=== PATIENT | female | born 1995 | race Hispanic/Latino ===

== ENCOUNTER 2022-08-01 00:05 | Inpatient (IN) | payer OTHER ==
[~2022-08-01] VITALS: Ht 152.4 cm; Wt 64.9 kg
[2022-08-01 00:53] VITALS: BP 124/79
--- NOTE | 2022-08-01 13:32 | PR ---
[facility] [address] [place] [place] [address] Signed Progress Notes IP Datetime Report Generated by CPN: 08/01/2022 13:32 PROGRESS NOTES: [id number] Impression: Normal Progression of Labor; Reassuring Heart Rate Procedures: Intrauterine Pressure Catheter Plan: Continue Present Management Informed Consent Obtain: Vaginal Delivery VITAL SIGNS: [id number] Vital Signs: Reviewed; Within Normal Limits EXAM: [id number] Dilatation: 3.5 Effacement: 85 Station: -2 Contractions: q 1 min MEMBRANES: [id number] Comments: Pt seen and examined. Doing well. Comfortable w/ contractions after epidural. Cx now 3.5cm. IUPC placed w/out difficulty. Reviewed anticipated course of labor and delivery FETUS A: [id number] FHR Baseline: 140 Variability: Moderate 6-25bpm Accelerations: None Decelerations: None FHR Category: Category I Presentation: Vertex Comments on Fetus A: No evidence of metabolic acidosis FETUS B: [id number] Signing Physician: Armando Mendez DO Copies: ~ *Electronically Signed* 08/01/22 1062 ARMANDO MENDEZ (BRYAN) DO PATIENT NAME: TOMLINSON ENCARNACION,YOSHIRA J PROGRESS NOTE DATE OF : 97 PHYSICIAN: ARMANDO MENDEZ) DO RPT #: [id number] REPORT IS CONFIDENTIAL AND NOT TO BE RELEASED WITHOUT AUTHORIZATION
--- NOTE | 2022-08-01 17:29 | PR ---
[facility] [address] [place], [place] [address] Signed Progress Notes IP Datetime Report Generated by RONEY: 08/01/2022 17:28 PROGRESS NOTES: [id number] Impression: Normal Progression of Labor; Reassuring Heart Rate Other Impressions: tachycardia Procedures: Sterile Vag Exam Plan: Continue Present Management Informed Consent Obtain: Vaginal Delivery VITAL SIGNS: [id number] Vital Signs: Reviewed; Within Normal Limits EXAM: [id number] Dilatation: 7.0 Effacement: 90 Station: -1 Contractions: q 1 min MEMBRANES: [id number] Comments: Pt seen and examined. tachycardia noted. Pt reports that she feels well but does complain of some mild chest heaviness. No chest pain. No maternal tachycardia but borderline maternal temp. Moderate variability noted. Will give dose of tylenol 1g PO now and monitor closely. Discussed ddx of tachycardia and will consider abx therapy if indicated. All questions answered. FETUS A: [id number] FHR Baseline: 140 Variability: Moderate 6-25bpm Accelerations: None Decelerations: None FHR Category: Category I Presentation: Vertex Comments on Fetus A: No evidence of metabolic acidosis FETUS B: [id number] Signing Physician: Armando Mendez DO Copies: ~ *Electronically Signed* 08/01/22 3258 ARMANDO MENDEZ (BRYAN) DO PATIENT NAME: DAVI ENCARNACIONVERENICE PROGRESS NOTE DATE OF : 97 PHYSICIAN: ARMANDO MENDEZ (JD) DO RPT #: [id number] REPORT IS CONFIDENTIAL AND NOT TO BE RELEASED WITHOUT AUTHORIZATION
--- NOTE | 2022-08-01 18:32 | PR ---
[facility] [address] [place], [place] [address] Signed Progress Notes IP Datetime Report Generated by CPN: 08/01/2022 18:32 PROGRESS NOTES: [id number] Impression: Normal Progression of Labor Other Impressions: tachycardia Procedures: Sterile Vag Exam Plan: Continue Present Management Other Plans: cbc; consider abx Informed Consent Obtain: Risks, Benefits and Alternatives Discussed VITAL SIGNS: [id number] Vital Signs: Reviewed; Within Normal Limits EXAM: [id number] Dilatation: 8.0 Effacement: 90 Station: -1 Contractions: q 1 min MEMBRANES: [id number] Comments: Pt seen and evaluated. FHT had improved but over the past few minutes tachycardia increased, minimal variability, and suble late decelerations. Pt now 8cm / 90 / -1. Discussed FHT and d/dx. Pt recently received tylenol and is afebrile and non-tachycardic. Pt denies subjective fever. Will continue intrauterine rescussitation FETUS A: [id number] FHR Baseline: 140 Variability: Moderate 6-25bpm Accelerations: None Decelerations: None FHR Category: Category I Presentation: Vertex Comments on Fetus A: No evidence of metabolic acidosis FETUS B: [id number] Signing Physician: Armando Mendez DO Copies: ~ *Electronically Signed* 08/01/221831 ARMANDO MENDEZ (BRYAN) DO PATIENT NAME: VERENICE ANGUIANO PROGRESS NOTE DATE OF : 97 PHYSICIAN: ARMANDO MENDEZ) DO RPT #: [id number] REPORT IS CONFIDENTIAL AND NOT TO BE RELEASED WITHOUT AUTHORIZATION
--- NOTE | 2022-08-01 19:23 | PR ---
[facility] [address] [place], [place] [address] Signed Progress Notes IP Datetime Report Generated by CPN: 08/01/2022 19:23 PROGRESS NOTES: [id number] Impression: Normal Progression of Labor; Reassuring Heart Rate Other Impressions: tachycardia Procedures: Sterile Vag Exam Plan: Continue Present Management; Anticipate Vaginal Delivery Other Plans: cbc; consider abx Informed Consent Obtain: Risks, Benefits and Alternatives Discussed VITAL SIGNS: [id number] Vital Signs: Reviewed; Within Normal Limits EXAM: [id number] Dilatation: 9.0 Effacement: 90 Station: -1 Contractions: q 1 min MEMBRANES: [id number] Comments: Pt seen and examined. Doing well. Afebrile and pt reports she feels well. Comfortable w/ contractions. Reviewed CBC showing mild leukocytosis. FETUS A: [id number] FHR Baseline: 140 Variability: Moderate 6-25bpm Accelerations: None Decelerations: None FHR Category: Category I Presentation: Vertex Comments on Fetus A: No evidence of metabolic acidosis FETUS B: [id number] Signing Physician: Armando Mendez DO Copies: ~ *Electronically Signed* 08/01/221922 ARMANDO MENDEZ (BRYAN) DO PATIENT NAME: DAVI ENCARNACIONVERENICE PROGRESS NOTE DATE OF : 97 PHYSICIAN: ARMANDO MENDEZ) DO RPT #: [id number] REPORT IS CONFIDENTIAL AND NOT TO BE RELEASED WITHOUT AUTHORIZATION
--- NOTE | 2022-08-01 21:16 | PR ---
[facility] [address] [place], [place] [address] Signed Progress Notes IP Datetime Report Generated by CPN: 08/01/2022 21:16 PROGRESS NOTES: [id number] Impression: Normal Progression of Labor; Reassuring Heart Rate Other Impressions: tachycardia Procedures: Sterile Vag Exam Plan: Continue Present Management; Anticipate Vaginal Delivery Other Plans: cbc; consider abx Informed Consent Obtain: Risks, Benefits and Alternatives Discussed VITAL SIGNS: [id number] Vital Signs: Reviewed; Within Normal Limits EXAM: [id number] Dilatation: 9.0 Effacement: 90 Station: 0 Contractions: q 1 min MEMBRANES: [id number] Comments: Pt seen and examined. Doing well. Comfortable w/ contractions. Cat 1 tracing. Afebrile. Reviewed inadequate contractions, EFW, and adequate pelvis. Will consider pitocin augmentation FETUS A: [id number] FHR Baseline: 140 Variability: Moderate 6-25bpm Accelerations: None Decelerations: None FHR Category: Category I Presentation: Vertex Comments on Fetus A: No evidence of metabolic acidosis FETUS B: [id number] Signing Physician: Armando Mendez DO Copies: ~ *Electronically Signed* 08/01/222115 ARMANDO MENDEZ (BRYAN) DO PATIENT NAME: DAVI ENCARNACIONVERENICE [place] PROGRESS NOTE DATE OF : 97 PHYSICIAN: ARMANDO MENDEZ (JD) DO RPT #: [id number] REPORT IS CONFIDENTIAL AND NOT TO BE RELEASED WITHOUT AUTHORIZATION
--- NOTE | 2022-08-01 23:22 | PR ---
[facility] [address] [place], [place] [address] Signed Progress Notes IP Datetime Report Generated by CPN: 08/01/2022 23:22 PROGRESS NOTES: [id number] Impression: Normal Progression of Labor; Reassuring Heart Rate Other Impressions: tachycardia Procedures: Sterile Vag Exam Plan: Continue Present Management; Anticipate Vaginal Delivery Other Plans: cbc; consider abx Informed Consent Obtain: Vaginal Delivery VITAL SIGNS: [id number] Vital Signs: Reviewed; Within Normal Limits EXAM: [id number] Dilatation: 9.5 Effacement: 100 Station: 0 Contractions: q 1 min MEMBRANES: [id number] Comments: Pt seen and examined. Doing well. Continued cervical progress w/ inadequate contractions on pitocin. Will continue pitocin per protocol. Reviewed adequate pelvis, EFW, and position. All questions answered. No fevers or s/sx intraamniotic infection FETUS A: [id number] FHR Baseline: 140 Variability: Moderate 6-25bpm Accelerations: None Decelerations: None FHR Category: Category I Presentation: Vertex Comments on Fetus A: No evidence of metabolic acidosis FETUS B: [id number] Signing Physician: Armando Mendez DO Copies: ~ *Electronically Signed* 08/01/22 1366 ARMANDO MENDEZ (BRYAN) DO PATIENT NAME: VERENICE ANGUIANO PROGRESS NOTE DATE OF : 97 PHYSICIAN: ARMANDO MENDEZ (JD) DO RPT #: [id number] REPORT IS CONFIDENTIAL AND NOT TO BE RELEASED WITHOUT AUTHORIZATION
--- NOTE | 2022-08-02 00:50 | PR ---
[facility] [address] [facility] [place], [place] [address] Signed Progress Notes IP Datetime Report Generated by CPN: 08/02/2022 00:50 PROGRESS NOTES: [id number] Impression: Normal Progression of Labor; Reassuring Heart Rate Other Impressions: tachycardia Procedures: Sterile Vag Exam Plan: Continue Present Management; Anticipate Vaginal Delivery Other Plans: cbc; consider abx Informed Consent Obtain: Vaginal Delivery VITAL SIGNS: [id number] Vital Signs: Reviewed; Within Normal Limits EXAM: [id number] Dilatation: 9.5 Effacement: 100 Station: 1 Contractions: q 1 min MEMBRANES: [id number] Comments: Pt seen and examined. Pushing well w/ contractions. Will continue pushing efforts. Anticipate soon FETUS A: [id number] FHR Baseline: 140 Variability: Moderate 6-25bpm Accelerations: None Decelerations: None FHR Category: Category I Presentation: Vertex Comments on Fetus A: No evidence of metabolic acidosis FETUS B: [id number] Signing Physician: Armando Mendez DO Copies: ~ *Electronically Signed* 08/02/22 0050 ARMANDO MENDEZ (BRYAN) DO PATIENT NAME: VERENICE ANGUIANO PROGRESS NOTE DATE OF : 97 PHYSICIAN: ARMANDO MENDEZ) DO RPT #: [id number] REPORT IS CONFIDENTIAL AND NOT TO BE RELEASED WITHOUT AUTHORIZATION
--- NOTE | 2022-08-02 01:57 | PR ---
[facility] [address] [place], [place] [address] Signed Progress Notes IP Datetime Report Generated by RONEY: 08/02/2022 01:57 PROGRESS NOTES: [id number] Impression: Arrest of Dilatation/Descent Other Impressions: tachycardia Procedures: Sterile Vag Exam Plan: Continue Present Management Other Plans: Consider C/S if continued failure to descend Informed Consent Obtain: Vaginal Delivery; Section Delivery; Risks, Benefits and Alternatives Discussed VITAL SIGNS: [id number] Vital Signs: Reviewed; Within Normal Limits EXAM: [id number] Dilatation: 9.5 Effacement: 100 Station: 1 Contractions: q 1 min MEMBRANES: [id number] Comments: Physician has stayed w/ pt w/ pushing efforts. Multiple gentle attempts and manual rotation from direct OP position have been tried with persistant OP position and now limited / no descensus noted. Signiciant caput and perinal edema noted. FHT reassuring. Discussed options w/ pt and recommend attempted pushing in extreme lateral positions. If no descensus continues, will recommend delivery via primary LTCS. Pt and partner understand and agree. FETUS A: [id number] FHR Baseline: 140 Variability: Moderate 6-25bpm Accelerations: None Decelerations: None FHR Category: Category I Presentation: Vertex Comments on Fetus A: No evidence of metabolic acidosis FETUS B: [id number] Signing Physician: Armando Mendez DO *Electronically Signed* 08/02/22 0157 ARMANDO MENDEZ (BRYAN) DO PATIENT NAME: DAVI VERENICE ENCARNACION PROGRESS NOTE DATE OF : 97 PHYSICIAN: ARMANDO MENDEZ (JD) DO RPT #: [id number] REPORT IS CONFIDENTIAL AND NOT TO BE RELEASED WITHOUT AUTHORIZATION
--- NOTE | 2022-08-02 02:21 | PR ---
[facility] [address] [facility] [place], [place] [address] Signed Progress Notes IP Datetime Report Generated by CPN: 08/02/2022 02:21 PROGRESS NOTES: [id number] Impression: Arrest of Dilatation/Descent Other Impressions: tachycardia Procedures: Sterile Vag Exam Plan: Deliver- Section Other Plans: Consider C/S if continued failure to descend Informed Consent Obtain: Section Delivery VITAL SIGNS: [id number] Vital Signs: Reviewed; Within Normal Limits EXAM: [id number] Dilatation: 9.5 Effacement: 100 Station: 1 Contractions: q 1 min MEMBRANES: [id number] Comments: On exam, no descensus again noted despite adequate contractions and excellent maternal expulsive efforts. Persistant OP position. FETUS A: [id number] FHR Baseline: 140 Variability: Moderate 6-25bpm Accelerations: None Decelerations: None FHR Category: Category I Presentation: Vertex Comments on Fetus A: No evidence of metabolic acidosis FETUS B: [id number] Signing Physician: Armando Mendez DO Copies: ~ *Electronically Signed* 08/02/22220 ARMANDO MNEDEZ (BRYAN) DO PATIENT NAME: VERENICE ANGUIANO PROGRESS NOTE DATE OF : 97 PHYSICIAN: ARMANDO MENDEZ) DO RPT #: [id number] REPORT IS CONFIDENTIAL AND NOT TO BE RELEASED WITHOUT AUTHORIZATION
[2022-08-02 04:53] VITALS: BP 106/51
--- NOTE | 2022-08-04 09:56 | PR ---
[facility] [address] [facility] [place], [place] [address] Signed PP Progress Notes Datetime Report Generated by CPN: 08/04/2022 09:56 SUBJECTIVE: [id number] Pain: Within Normal Limits Nausea/Vomiting: Denies Flatus: Yes Vital Signs: [id number] Vital Signs: Reviewed; Within Normal Limits Notable Details: no further temp elevations Cardiovascular: Normal Respiratory: Normal Abdomen/Uterus: Abnormal Lochia: Normal Vulva/Perineum: Not Done Breasts: Not Done CVA Tenderness: Not Done Extremities: Normal Incision: Normal Progress: Normal Exam Comments: Abdomen with active BS. Fundus firm, NT @ U-2. IMPRESSION/PLAN/PROCEDURES: [id number] Impression: Normal Progression Other Impression: elevated temp has resolved. Plan: Remove Karime; Discharge Other Plans: ambulate, shower Procedures: None Progress Notes: Doing well. She desires discharge today. Signing Physician: Adrianne King MD Copies: ~ *Electronically Signed* 08/04/22 0956 ADRIANNE KING MD PATIENT NAME: VERENICE ANGUIANO PROGRESS NOTE DATE OF : 97 PHYSICIAN: ADRIANNE KING MD RPT #: [id number] REPORT IS CONFIDENTIAL AND NOT TO BE RELEASED WITHOUT AUTHORIZATION
--- NOTE | 2022-08-09 21:56 | OR ---
[facility] [address] [place], [place] [address] Signed DATE OF OPERATION: 08/02/2022 SURGEON: Armando Mendez DO PREOPERATIVE DIAGNOSES: 1. Term . 2. Arrest of descent. 3. Persistent OP position. POSTOPERATIVE DIAGNOSES: 1. Term . 2. Arrest of descent. 3. Persistent OP position. PROCEDURE PERFORMED: Primary low transverse delivery. ANESTHESIA: Epidural. INDUSTRIAL TRAINER: Aurelio Hammer MD. ESTIMATED BLOOD LOSS: 500 mL. COMPLICATIONS: None. DRAINS: Jimenes to gravity. FINDINGS: Delivery of viable female in the direct OP position with significant caput. Light meconium-stained fluid. No nuchal cord. Normal uterus, tubes, and ovaries. INDICATIONS: Ms. Christiana Encarnacion is a very pleasant 27-year-old, G1, P0 female who presented for elective induction at 40 weeks three days' gestation. was uncomplicated. The patient received one dose of Cytotec and cervix was determined to be ripe. Artificial Electronically Signed By: ARMANDO MENDEZ DO (JD) 08/09/22 2156 PATIENT NAME: VERENICE ANGUIANO OPERATIVE REPORT DATE OF : 97 REPORT #: [id number] PHYSICIAN: ARMANDO MENDEZ DO (JD) PCP: OTHER PCP REPORT IS CONFIDENTIAL AND NOT TO BE RELEASED WITHOUT AUTHORIZATION [facility] [address] [facility] [place] [address] Signed rupture of membranes was performed for clear fluid. The patient progressed and received an epidural. The patient progressed to complete and pushed. Baby was noted to be in the direct OP position and multiple attempts at manual rotation of the head were performed and unsuccessful. After nearly 2-1/2 hours of pushing, no descensus had been appreciated at all and significant caput was appreciated. We reviewed options for continued pushing or delivery via primary low-transverse delivery and patient desired primary . Risks, benefits, and alternatives were discussed in detail with the patient. The patient understands and wishes to proceed with the procedure. TECHNIQUE: The patient was taken to the operating room where a time-out was performed to confirm correct patient, correct procedure. Epidural was bolused and found to be adequate. The patient was prepped and draped in the supine position with a bump under the right hip. A Jimenes catheter was inserted. The patient received Ancef 2 g as well as azithromycin 500 mg IV. No preop heparin was indicated. Once anesthetic was found to be adequate, a Pfannenstiel skin incision was made approximately 2 cm above the pubic symphysis and carried down to the fascia. Fascia was nicked in the midline and fascial incision was extended bilaterally using curved Correa scissors. Fascia was grasped with Bill's, elevated, and the underlying rectus muscles dissected off bluntly and sharply. The rectus muscles divided bluntly in the midline and peritoneum was entered bluntly. Peritoneal incision was extended cephalad and caudad using blunt dissection. The lower uterine segment was identified and an John self-retractor was placed without difficulty. Hysterotomy was performed in the lower uterine segment using a surgical scalpel. Thin meconium fluid was noted. Hysterotomy was extended bilaterally using blunt dissection. The surgeon's hand was placed into the uterine cavity and the vertex was noted to be wedged into the pelvis in the OP position. Very careful maneuvering of the vertex was performed to flex the vertex and deliver it into the abdomen. The was then delivered with the assistance of fundal pressure without difficulty. No nuchal cord and was vigorous and cried at delivery. Cord was doubly clamped and cut and handed to the waiting pediatric team for further care. Cord blood was obtained for routine analysis. The placenta was expressed intact with a centrally inserted three-vessel cord. The uterine cavity was cleared of any remaining products of conception or clot. Hysterotomy was examined and repaired in two layers using 0 Monocryl suture. The 1st being a running locked suture and the 2nd being a running nonlocked imbricating stitch in a vertical manner. Small amount of oozing was noted. This was made hemostatic with one [id number] and judicious use of Bovie electrocautery. The pelvis was irrigated and a small amount of oozing was noted at the right peritoneal edge of the laceration. This was made hemostatic with Bovie electrocautery and Michel powder with excellent hemostasis appreciated. The pelvis was then confirmed to be hemostatic. John self-retractor was removed and normal tubes and ovaries were noted bilaterally with a small paratubal cyst on the left. Peritoneum was then reapproximated using 2-0 Vicryl in a running nonlocked manner. Rectus was Electronically Signed By: ARMANDO BOYD) DO AHMET 08/09/22 7591 PATIENT NAME: CHRISTIANA ENCARNACIONVERENICE [place] OPERATIVE REPORT DATE OF : 97 REPORT #: [id number] PHYSICIAN: ARMANDO MENDEZ) PCP: OTHER PCP REPORT IS CONFIDENTIAL AND NOT TO BE RELEASED WITHOUT AUTHORIZATION [address] [address] Signed examined, made hemostatic using Bovie electrocautery and was then plicated in the midline using 0 Vicryl. Michel powder as well as ACell powder was applied to the rectus sheath after hemostasis confirmed. Fascia was then reapproximated using 0 Vicryl in a running nonlocked manner. Subcutaneous tissue was then reapproximated using 3-0 Vicryl and the skin was closed using surgical herman. The uterus was Crede'd for scant amount of blood and the patient was taken to PACU in good and stable condition. Sponge, needle, and instrument count was correct x2 at the end of the procedure. Dr. Hammer was present and participated in all portions of the procedure. DO AI Zuniga/SALLIEL /[id number] Copies: ~ Electronically Signed By: ARMANDO MENDEZ DO (JD) 08/09/22 2156 PATIENT NAME: VERENICE ANGUIANO OPERATIVE REPORT DATE OF : 97 REPORT #: [id number] PHYSICIAN: ARMANDO MENDEZ DO (JD) PCP: OTHER PCP REPORT IS CONFIDENTIAL AND NOT TO BE RELEASED WITHOUT AUTHORIZATION
== END 2022-08-04 15:00 | disposition home or self-care (01) | DRG 788 ==
LOC: FBC
PROVIDERS: ADMIT Obstetrics & Gynecology; ATTEND Obstetrics & Gynecology
PROC: 10D00Z1 Extraction of Products of Conception, Low, Open Approach (ICD-10-PCS; principal; 2022-08-01)
PROC: 10907ZC Drainage of Amniotic Fluid, Therapeutic from Products of Conception, Via Natural or Artificial Opening (ICD-10-PCS; 2022-08-01)
PROC: 10S07ZZ Reposition Products of Conception, Via Natural or Artificial Opening (ICD-10-PCS; 2022-08-01)
DX: O62.1 Secondary uterine inertia (principal); Z67.10 Type A blood, Rh positive; Z20.822 Contact with and (suspected) exposure to COVID-19; Z37.0 Single live birth; O48.0 Post-term pregnancy; Z3A.40 40 weeks gestation of pregnancy
CPT/HCPCS: 01961; 36415; 85025; 85027; 86850; 86900; 86901; 87502; A9270; J0131; J0456; J0690; J1650; J1885; J2370; J2405; J2795; J3010; J7121; U0003

== ENCOUNTER 2025-03-02 15:31 | Inpatient (IN) | payer OTHER ==
[~2025-03-02] VITALS: Ht 154.9 cm; Wt 66.7 kg
--- NOTE | ~2025-03-02 | OR ---
[facility] [address], [place] [address] Draft DATE OF OPERATION: 03/08/2025 SURGEON: Jaida Kwon MD PREOPERATIVE DIAGNOSES: 1. Intrauterine at 39 weeks. 2. Prior section, declines trial of labor after . POSTOPERATIVE DIAGNOSES: 1. Intrauterine at 39 weeks. 2. Prior section, declines trial of labor after . PROCEDURE: Repeat low transverse section. FINDINGS: Clear amniotic fluid. Fetus in vertex presentation. Vigorous male. Apgars of 9 and 9, weight of 7 pounds 13 ounces. Normal uterus, ovaries, and tubes. ANESTHESIA: Spinal. CARPENTRY SPECIALIST: None. IV FLUIDS: 1300 mL crystalloid. QBL: 410 mL. URINE OUTPUT: 100 mL clear urine. DRAINS: Jimenes to gravity. SPECIMENS: None. PATIENT NAME: VERENICE ANGUIANO OPERATIVE REPORT DATE OF : [birth year] REPORT #: [id number] PHYSICIAN: JAIDA KWON MD PCP: JAIDA KWON MD REPORT IS CONFIDENTIAL AND NOT TO BE RELEASED WITHOUT AUTHORIZATION [facility] [address] [place] [id number] Draft COUNTS: Correct x2. COMPLICATIONS: None apparent. TECHNIQUE IN DETAIL: With informed consent, the patient was taken to the operating room where spinal anesthetic was placed. IV Ancef per protocol was given and her lower extremities were placed in pneumatic compression devices for DVT prophylaxis. She was prepped and draped in sterile fashion and time-out was performed per protocol. Under adequate spinal anesthetic field, the old scar was removed. This is approximately 8 inches long. Once it was removed, sharp dissection was carried down to the layer of the rectus fascia, which was nicked in the midline. The rectus fascia ines was enlarged bilaterally using sharp dissection. The rectus muscles were then taken down from the fascia using a combination of sharp and blunt dissection. The rectus muscles were in the midline at the most superior aspect. Peritoneum was entered with sharp dissection after careful elevation with hemostats and using Metzenbaum scissors to carefully and slowly incise the preperitoneal tissue and ultimately the peritoneum. Peritoneal opening was enlarged with combination of sharp and blunt dissection. The rectus muscles were in the midline inferiorly using sharp dissection. Peritoneum was enlarged inferiorly using the electrocautery device. The edge of the bladder was identified and the peritoneal opening was then enlarged with some blunt dissection. A bladder blade was then placed and the lower uterine segment was identified. A bladder flap was created due to some adhesions of the bladder higher up on the uterus and in the neighborhood where we are going to make the incision. The uterine serosa was incised and the bladder was dissected inferiorly with blunt dissection thereafter. Using a scalpel, a low transverse uterine incision was made. Sharp dissection was carried down to the layer of the membranes, which were incised releasing copious amounts of clear fluid. Uterine incision was enlarged with blunt dissection in a superior and inferior direction. The surgeon's hand was placed into the lower uterine segment. head was elevated and delivered with fundal pressure. There was no nuchal cord. The shoulders delivered easily. Cord was clamped x2 and cut after approximately 20 seconds. Baby was sent to the respiratory team for transition. The placenta delivered intact with a three-vessel cord using fundal massage and gentle traction. Good uterine tone was achieved with intravenous oxytocin and fundal massage. PATIENT NAME: VERENICE ANGUIANO OPERATIVE REPORT DATE OF : [birth year] REPORT #: [id number] PHYSICIAN: JAIDA KWON MD PCP: JAIDA KWON MD REPORT IS CONFIDENTIAL AND NOT TO BE RELEASED WITHOUT AUTHORIZATION [facility] [address], [place] [address] Draft The uterus was externalized and the uterine cavity was curetted with laparotomy sponges. Uterine incision was closed with 0 Monocryl in a running locked fashion. There were some adhesions of the omentum on the anterior aspect of the uterus, which were taken down with electrocautery. Good hemostasis was noted. A second imbricating layer of 0 Monocryl was placed on the uterine incision in a running manner. Good hemostasis was obtained. The posterior cul-de-sac was cleared of all blood and clot. The left and right adnexa were examined with the above-mentioned findings. The uterine incision and bladder flap were inspected and again good hemostasis was noted. The uterus was carefully and gently returned to the pelvis. The left and right pericolic gutters were cleared of all blood and clot. The rectus muscles were then reapproximated using 2-0 chromic in a running manner. Approximately correction down toward the pelvis, we realized that there was some tearing of the medial rectus muscles from its attachment to the pelvic side. Using 0 Vicryl interrupted stitches, we reapproximated this fascial edge of the muscle to the fascial edge inferiorly. We then continued reapproximating the full rectus muscles with 2-0 chromic in a running manner until the inferior aspect was closed. We did a careful attention to underlying structures and most notably careful attention to the underlying urinary bladder. The rectus fascia was then reapproximated using 0 Vicryl in a running fashion. Superficial incision was irrigated and rendered hemostatic with electrocautery. The skin was then reapproximated using the Insorb stapler device. Steri-Strips and Dermabond were placed and a bandage was placed over the incision. The uterus was then expressed of all blood and clot. DISPOSITION: The patient was taken to the recovery room in stable condition. Jaida Kwon MD BB/SALLIEL /[id number] Copies: PATIENT NAME: VERENICE ANGUIANO OPERATIVE REPORT DATE OF : [birth year] REPORT #: [id number] PHYSICIAN: JAIDA KWON MD PCP: JAIDA KWON MD REPORT IS CONFIDENTIAL AND NOT TO BE RELEASED WITHOUT AUTHORIZATION [address] [address] Draft ~ PATIENT NAME: VERENICE ANGUIANO OPERATIVE REPORT DATE OF : [birth year] REPORT #: [id number] PHYSICIAN: JAIDA KWON MD PCP: JAIDA KWON MD REPORT IS CONFIDENTIAL AND NOT TO BE RELEASED WITHOUT AUTHORIZATION
[2025-03-08] MEDS ORDERED: SOD+POT BICARB/CITRIC ACID 2 EA TABLET.EFF PO ONE (07:00)
[2025-03-08] MEDS ORDERED: CEFAZOLIN SODIUM 2 GM in SODIUM CHLORIDE 0.9% 100 ML IV SCH (07:00)
[2025-03-08] MEDS ORDERED: LACTATED RINGER'S 1,000 ML IV PRN (08:15)
[2025-03-08 08:45] LABS: MCH 29.9 PG (25.6-32.2); MCHC 33.4 g/dL (32.2-35.5); MCV 89.6 fL (79.4-94.8); RBC 4.41 M/uL (3.93-5.22)
[2025-03-08 09:36] LABS: ABO A; ANTIBODY SCREEN NEGATIVE; RH POSITIVE
[2025-03-08] MEDS ORDERED: TRANEXAMIC ACID IN NACL,ISO-OS 100 ML IV ONE (09:40)
[2025-03-08] MEDS ORDERED: SOD+POT BICARB/CITRIC ACID 2 EA TABLET.EFF ONE (09:45)
[2025-03-08 09:46] LABS: AMPHETAMINES, URINE NEGATIVE (NEGATIVE); BARBITURATES, URINE NEGATIVE (NEGATIVE); BENZODIAZEPINE, URINE NEGATIVE (NEGATIVE); CANNABINOID, URINE NEGATIVE (NEGATIVE); COCAINE, URINE NEGATIVE (NEGATIVE); ECSTASY, URINE NEGATIVE (NEGATIVE); FENTANYL, URINE NEGATIVE (NEGATIVE); METHADONE, URINE NEGATIVE (NEGATIVE); OPIATES, URINE NEGATIVE (NEGATIVE); OXYCODONE, URINE NEGATIVE (NEGATIVE); PHENCYCLIDINE, URINE NEGATIVE (NEGATIVE)
[2025-03-08] MEDS ORDERED: fentaNYL citrate 100 MCG/2 ML VIAL ONE (09:58)
[2025-03-08] MEDS ORDERED: MORPHINE SULFATE 1 MG/ML VIAL ONE (09:58)
[2025-03-08] MEDS ORDERED: LIDOCAINE HCL 2% 5 ML SDV ONE (10:00)
[2025-03-08] MEDS ORDERED: OXYTOCIN 10 UNITS/ML VIAL ONE (10:00)
[2025-03-08] MEDS ORDERED: BUPIVACAINE 0.75% IN DEXTROSE 2 ML AMP ONE (10:00)
[2025-03-08] MEDS ORDERED: PHENYLEPHRINE HCL IN 0.9% NACL 1 MG/10 ML SYR ONE (10:00)
[2025-03-08] MEDS ORDERED: KETOROLAC TROMETHAMINE 30 MG/ML VIAL IV PRN ×2 (10:45)
[2025-03-08] MEDS ORDERED: NALOXONE HCL 0.4 MG SYR IV PRN ×2 (10:45)
[2025-03-08] MEDS ORDERED: IBLOOD GLUCOSE TEST STRIP 1 EA TEST VI PRN (10:45)
[2025-03-08] MEDS ORDERED: HYDROmorphone HCL 1 MG/ML SYR IV PRN (10:45)
[2025-03-08] MEDS ORDERED: DEXAMETHASONE SOD PHOS 4 MG/ML VIAL ONE (11:03)
[2025-03-08] MEDS ORDERED: SODIUM CHLORIDE 0.9% 20 ML IV ONE (11:03)
[2025-03-08] MEDS ORDERED: Ropivacaine HCl 0.5% 30 ML VIAL ONE (11:03)
[2025-03-08] MEDS ORDERED: SENNOSIDES/DOCUSATE 1 EA TAB PO SCH (11:55)
[2025-03-08] MEDS ORDERED: LACTATED RINGER'S 1,000 ML IV SCH (11:59)
[2025-03-08] MEDS ORDERED: PROMETHAZINE HCL 25 MG SUPP PR PRN (12:00)
[2025-03-08] MEDS ORDERED: OXYCODONE HCL 5 MG TAB PO PRN (12:00)
[2025-03-08] MEDS ORDERED: LIDOCAINE 2% VISCOUS 6 ML SYR TOP ONE (12:00)
[2025-03-08] MEDS ORDERED: METOCLOPRAMIDE HCL 10 MG/2 ML SDV IV PRN (12:00)
[2025-03-08] MEDS ORDERED: HYDROCODONE/ACETA 5/325 TAB PO PRN (12:00)
[2025-03-08] MEDS ORDERED: PROMETHAZINE HCL 25 MG TAB PO PRN (12:00)
[2025-03-08] MEDS ORDERED: IBUPROFEN 600 MG TAB PO SCH (12:00)
[2025-03-08] MEDS ORDERED: OXYTOCIN/0.9 % SODIUM CHLORIDE 500 ML IV SCH (12:00)
[2025-03-08] MEDS ORDERED: PROCHLORPERAZINE EDISYLATE 10 MG/2 ML VIAL IV PRN (12:00)
[2025-03-08 12:13] VITALS: BP 94/53
[2025-03-08] MEDS ORDERED: MECLIZINE HCL 25 MG TAB PO ONE (13:45)
[2025-03-08] MEDS ORDERED: ACETAMINOPHEN 500 MG TAB PO SCH (14:00)
[2025-03-08] MEDS ORDERED: CEFAZOLIN SODIUM 1 GM in SODIUM CHLORIDE 0.9% 100 ML IV SCH (15:00)
[2025-03-08] MEDS ORDERED: SIMETHICONE 80 MG CHEW PO SCH (16:00)
[2025-03-09] MEDS ORDERED: SOD+POT BICARB/CITRIC ACID 2 EA TABLET.EFF PO ONE (07:00)
--- NOTE | 2025-03-09 16:43 | PR ---
[facility] [address] [facility] [place], [place] [address] Signed PP Progress Notes Datetime Report Generated by CPN: 03/09/2025 16:43 SUBJECTIVE: [id number] Pain: Within Normal Limits Nausea/Vomiting: Denies Flatus: Yes Bowel Movement: No Vital Signs: [id number] Vital Signs: Reviewed; Within Normal Limits EXAM: Ongoing EXAM: Ongoing Cardiovascular: Normal Respiratory: Normal Abdomen/Uterus: Normal Lochia: Normal Vulva/Perineum: Not Done Breasts: Not Done CVA Tenderness: Normal Extremities: Normal Incision: Normal Progress: Normal Exam Comments: Fundus firm U-2 nontender IMPRESSION/PLAN/PROCEDURES: [id number] Impression: Normal Progression Plan: Continue Present Management Progress Notes: Pt seen and examined. Doing well. Ambulating, voiding, and tolerating full diet. Pain and lochia minimal. . No concerns. Desires d/c home tomorrow. Check hemogram in the AM Signing Physician: Armando Mendez DO Copies: ~ *Electronically Signed* 03/09/25 8407 ARMANDO MENDEZ (BRYAN) DO PATIENT NAME: VERENICE ANGUIANO PROGRESS NOTE DATE OF : [birth year] PHYSICIAN: ARMANDO MENDEZ) DO RPT #: [id number] REPORT IS CONFIDENTIAL AND NOT TO BE RELEASED WITHOUT AUTHORIZATION
[2025-03-10 06:12] LABS: MCH 30.3 PG (25.6-32.2); MCHC 33.1 g/dL (32.2-35.5); MCV 91.3 fL (79.4-94.8); RBC 3.9 M/uL (3.93-5.22)
--- NOTE | 2025-03-10 10:09 | PR ---
[facility] [address] [facility] [place], [place] [address] Signed PP Progress Notes Datetime Report Generated by CPN: 03/10/2025 10:09 Pain: Within Normal Limits Nausea/Vomiting: Denies Flatus: Yes Bowel Movement: Yes Vital Signs: Reviewed; Within Normal Limits EXAM: Ongoing Cardiovascular: Normal Respiratory: Normal Abdomen/Uterus: Normal Lochia: Normal CVA Tenderness: Normal Extremities: Normal Incision: Normal Progress: Normal Exam Comments: Fundus firm U-2 nontender. Incision healing well. Impression: Normal Progression Plan: Discharge Progress Notes: Pt seen and examined. Doing well. Ambulating, voiding, and tolerating full diet. Pain and lochia minimal. well. No fever/chils or other concerns. Desires d/c home. Planning natural family planning for pp contraception. Reviewed options and pros/cons of each method. Reviewed d/c medications and instructions in detail. F/U 2 wks. Signing Physician: Armando Mendez DO Copies: ~ *Electronically Signed* 03/10/25 100 ARMANDO MENDEZ (BRYAN) DO PATIENT NAME: VERENICE ANGUIANO PROGRESS NOTE DATE OF : [birth year] PHYSICIAN: ARMANDO MENDEZ (BRYAN) DO RPT #: [id number] REPORT IS CONFIDENTIAL AND NOT TO BE RELEASED WITHOUT AUTHORIZATION
== END 2025-03-10 13:06 | disposition home or self-care (01) | DRG 788 ==
LOC: FBC 03-08 07:57
PROVIDERS: Obstetrics & Gynecology; ADMIT Obstetrics & Gynecology; ATTEND Obstetrics & Gynecology
PROC: 10D00Z1 Extraction of Products of Conception, Low, Open Approach (ICD-10-PCS; principal; 2025-03-08 10:00)
DX: O34.211 Maternal care for low transverse scar from previous cesarean delivery (principal); Z37.0 Single live birth; Z3A.39 39 weeks gestation of pregnancy
CPT/HCPCS: 01961; 36415; 80307; 85027; 86850; 86900; 86901; A9270; J0165; J0688; J1100; J1200; J2003; J2274; J2405; J2590; J2795; J3010; J7121